=== PATIENT | male | born 1965 | race Caucasian/White ===

== ENCOUNTER 2016-11-27 16:44 | Inpatient (IN) | payer OTHER ==
[~2016-11-27] VITALS: Ht 185.4 cm; Wt 125.5 kg
--- NOTE | 2016-11-27 19:17 | ED NURSING NOTES ---
Clinical Report - Nurses [facility] [address] [place] [address] 11/27/2016 16:45 Patient: CAROLANN RICHARDSON TRIAGE Triage time 17:42 Nov 27 2016. Acuity: LEVEL 3. Chief Complaint: ABDOMINAL PAIN, NAUSEA, VOMITING and DIARRHEA. Alert. --17:51 Dean Smith R.N. 17:41 11/27/16. BP: 170/98. HR: 84 (regular and normal rate). RR: 18. O2 saturation: 96% on room air. Pain level now: 0/10. Additional comments: pain waxes and wanes. --17:51 Dean Smith R.N. 17:41. --19:00 Dean Smith R.N. 17:14 11/27/16. Pain level now: 7/10. --21:31 Dean Smith R.N. 17:41 11/27/16. Temp: 99 F. --21:32 Dean Smith R.N. Weight: 124.2 kg stated. Height/Length: 72 inches Per Patient. BMI: 37.2. --17:48 Dean Smith R.N. Medications Lomotil Oral 2-3 x daily. --17:46 Dean Smith R.N. Medication/allergy information source: the patient. --17:51 Dean Smith R.N. Allergies No Known Drug Allergy. --17:47 Dean Smith R.N. History Arrived by private vehicle. Historian: patient. Unaccompanied. Primary physician (Farhad). ( LUQ Abdominal pain. Pt states that he had a "blockage" once before and just before they were going to CT his abd, the Barium swallow broke everything loose, so they didn't do it.). Onset. (about 2 days ago). He has had nausea, vomiting, diarrhea and abdominal pain. Treatment [employer]: (Lomotil). SOCIAL HX: Smoker- current status unknown. Alcohol use; consumes four beers and liquor. (one or the other). No recent travel. No infectious disease exposure. ABUSE ASSESSMENT: No report of abuse. FALL RISK ASSESSMENT: Fall risk assessment completed. No fall risk identified. NUTRITIONAL RISK ASSESSMENT: The nutritional risk assessment revealed no deficiencies. FUNCTIONAL ASSESSMENT: Functional assessment: no impairments noted. LEARNING NEEDS ASSESSMENT: The learning needs assessment revealed no barriers. --17:51 Dean Smith R.N. SOCIAL HX: Former smoker, end date 1996. --19:00 Dean Smith R.N. PROBLEMS: Bowel Obstruction. --17:48 Dean Smith R.N. ADDITIONAL SURGERIES: Knee Surgery. --17:48 Dean Smith R.N. Interventions ID band on patient. To treatment room. --17:51 Dean Smith R.N. PHYSICAL ASSESSMENT Ambulatory to room. GENERAL / NEURO / PSYCH: Alert. Oriented X 4. HEENT: Mucous membranes are pink. RESPIRATORY: Respirations not labored. CVS: Normal sinus rhythm noted. GI / : Abdominal distention. SKIN: Skin is warm and dry. --17:51 Dean Smith R.N. NURSING PROGRESS NOTES Patient gowned. Reassurance given. Patient identifiers checked. Call light placed in reach. Side rails up x 1. Bed placed in lowest position. Brakes of bed on. Patient ready for evaluation- chart flagged and ED physician notified. --17:52 Dean Smith R.N. 18:24 11/27/2016 Site #1 started via IV in the right hand with an 20g angiocath, with aseptic technique and good blood return; one attempt. Blood drawn: rainbow set. Labeled in the presence of the patient and sent to the lab. Saline lock flushed with 10 mL saline. --18:39 Dean Smith R.N. 18:29 11/27/2016 Started bag #1 1000 mL IV Fluids IV NS (Saline); at 1000 mL/hr over 60 minute(s) via site #1 via IV pump. Allergies verified and confirmed 5 rights. IV patency established. IV site checked: no pain, redness, or swelling. IV flushed thoroughly pre- and post-medication administration. --18:39 Dean Smith R.N. 18:30 11/27/2016 Zofran (Ondansetron HCl) IVP 4 mg given over 2 minute(s) via site #1. Allergies verified and confirmed 5 rights. IV patency established. IV site checked: no pain, redness, or swelling. IV flushed thoroughly pre- and post-medication administration. IVP given by RN. --18:40 Dean Smith R.N. 18:30 11/27/16. Checked patient name, birthdate and medical record number: patient confirmed. Instructions provided to collect clean catch urine and patient verbalized understanding. Clean catch urine collected with return of maurizio-colored clear urine; odor is normal; sample sent to lab for urinalysis, culture and drug screen. Specimen labeled in the presence of the patient. --18:43 Dean Smith R.N. 18:33 11/27/2016 Reglan (Metoclopramide HCl) IVP 10 mg given over 2 minute(s) via site #1. Allergies verified and confirmed 5 rights. IV patency established. IV site checked: no pain, redness, or swelling. IV flushed thoroughly pre- and post-medication administration. IVP given by RN. --18:40 Dean Smith R.N. 18:36 11/27/2016 Dilaudid (HYDROmorphone HCl PF) IVP 0.5 mg given over 2 minute(s) via site #1. Allergies verified, confirmed 5 rights and sedative warning given to the patient. IV patency established. IV site checked: no pain, redness, or swelling. IV flushed thoroughly pre- and post-medication administration. IVP given by RN. --18:41 Dean Smith R.N. 19:30 11/27/2016 IV Fluids IV NS Bag Change: bag #1 infused. Total amount infused: 1000. STARTED bag #2 (1000 mL) at 500 mL/hr via IV pump. Confirmed 5 rights. IV patency established. IV site checked: no pain, redness, or swelling. IV flushed thoroughly. --20:40 Dean Smith R.N. 20:11 11/27/16. 18 fr NG tube inserted with minimal difficulty. Placement confirmed by return of gastric contents. Return: brown, green fluid. Attached to low and intermittent suction. (pt tolerated procedure fair). --20:31 Dean Smith R.N. 20:42 11/27/16. BP: 154/86. HR: 90. RR: 16. O2 saturation: 92% on room air. Pain level now: 12/19. Additional comments: Abdominal pain. --20:43 Dean Smith R.N. DISPOSITION / DISCHARGE 21:05 11/27/16. BP: 156/90. HR: 86. RR: 18. O2 saturation: 92% on room air. Temp: 99.2 F. Pain level now: 12/19. --21:26 Dean Smith R.N. Departure time: 2109. --21:26 Dean Smith R.N. 21:10 11/27/16. Admitted to Acute Care. Transported via stretcher by transport team with IV. Report was given to a nurse via a phone call. Report included patient's care, treatment, medications, reviewed medication reconcilliation, and condition (including any recent changes or anticipated changes). All questions were answered. Report was acknowledged. Patient's personal items; items were placed in belongings bag and transported with the patient. --21:28 Dean Smith R.N. Locked/Released at 11/27/2016 21:32 by Dean Smith R.N.
--- NOTE | 2016-11-27 19:17 | ED ORDER SUMMARY ---
..... Patient: CAROLANN RICHARDSON OrderSheet [facility] VisitID: [id number] [address] [place] [address] 51y, M Registration Date/Time: 11/27/2016 ORDER SHEET Weight: 124.2 kg (stated) Allergies: No Known Drug Allergy GENERAL ORDERS: CT Abd/Pel w Cont (No) (N/A) Urgent (17:47 11/27/2016 PHutchinson DO) (Ack 17:56 [facility]) [facility] w Diff Urgent (17:48 11/27/2016 PHutchinson DO) (Ack 17:56 LTapper) (20:30 JRomanelli R.N.) CMP Urgent (17:48 11/27/2016 PHutchinson DO) (Ack 17:56 LTapper) (20:30 JRomanelli R.N.) UA-Culture if indicated Urgent (17:48 11/27/2016 PHutchinson DO) (Ack 17:56 LTapper) (18:41 JRomanelli R.N.) Amylase Urgent (17:48 11/27/2016 PHutchinson DO) (Ack 17:56 LTapper) (18:41 JRomanelli R.N.) Lipase Urgent (17:48 11/27/2016 PHutchinson DO) (Ack 17:56 LTapper) (18:41 JRomanelli R.N.) PT with INR Urgent (17:48 11/27/2016 PHutchinson DO) (Ack 17:56 LTapper) (18:41 JRomanelli R.N.) Urine Drug Screen Urgent (17:48 11/27/2016 PHutchinson DO) (Ack 17:56 LTapper) (18:41 JRomanelli R.N.) NPO (17:48 11/27/2016 PHutchinson DO) (18:41 JRomanelli R.N.) NG Tube (to light suction, to intermittent suction) (19:30 11/27/2016 PHutchinson DO) (20:29 JRomanelli R.N.) Call (Place call to): (Dr Macdonald) (19:30 11/27/2016 [facility]) (19:46 LTapper) MEDICATION ORDERS: IV FLUIDS: IV NS : initial bolus 1000 mL (1000 mL/hr), then 500 mL/hr for X2 (NOW) (17:47 11/27/2016 [facility]) (18:39 Shi R.N.) Reglan IV 10 mg (NOW) (17:48 11/27/2016 [facility]) (18:40 Shi R.N.) Zofran IV 4 mg (NOW) (17:48 11/27/2016 [facility]) (18:40 Shi R.N.) Dilaudid IV 0.5 mg (HIGH ALERT MEDICATION) (17:58 11/27/2016 [facility]) (18:41 Shi R.N.) ORDER SHEET NOTES: [Electronically signed by Dean Smith R.N. (21:32 11/27/2016)] [Electronically signed by Mihir Betancourt DO (21:36 11/27/2016)] [Electronically locked/signed by Dean Smith R.N. (21:32 11/27/2016)]
--- NOTE | 2016-11-27 19:17 | ED CLINICAL REPORT ---
Clinical Report - Physicians/Mid Levels [facility] [address] [address] 11/27/2016 16:45 Patient: CAROLANN RICHARDSON Time Seen: 17:47. Arrived- By private vehicle. Historian- patient. HISTORY OF PRESENT ILLNESS Chief Complaint: ABDOMINAL PAIN. At its maximum, severity described as severe. When seen in the E.D., severity described as severe. Modifying factors- worsened by movement. Relieved by rest. It is described as sharp. No radiation. It is described as located in the upper abdomen and in the left upper quadrant. This started 2 days ago and is still present. It was gradual in onset and has been waxing/waning. The patient has had nausea and diarrhea. He has had vomiting (states diarrhea for months). Similar symptoms previously: Once. Diagnosis: bowel obstruction. Recent medical care: The patient was seen recently in the office (seen at Dr. Nunez's office today and sent to the ED). REVIEW OF SYSTEMS The patient has had constipation and back pain. No black stools, hematemesis, difficulty with urination, pain with urination or urinary frequency. No bloody stools, fever, headache, sore throat or chest pain. No difficulty breathing or cough. All systems otherwise negative, except as recorded above. PAST HISTORY Bowel obstruction secondary to unknown causes. Primary physician (Farhad). Surgeries: Knee surgery. Medications: Lomotil Oral 2-3 x daily. Allergies: No Known Drug Allergy. SOCIAL HISTORY Former smoker. Occasional alcohol use. No drug use. Is a local resident. ADDITIONAL NOTES The nursing notes have been reviewed. PHYSICAL EXAM Vital Signs: 11/27/2016 17:41 BP: 170/98. HR: 84. RR: 18. O2 saturation: 96%. Pain level now: 0/10. Appearance: Alert. Oriented X3. Patient in moderate distress. Eyes: Eyes normal inspection. No scleral icterus or pale conjunctivae. ENT: Pharynx normal. No pharyngeal erythema or tonsillar exudate. The mucous membranes are not dry. Neck: Normal inspection. Neck supple. CVS: Normal heart rate and rhythm. Heart sounds normal. Pulses normal. Respiratory: No respiratory distress. Breath sounds normal. Abdomen: Soft. Moderate tenderness diffusely. Guarding present. No mass. Distention with tenderness to palpation. Back: Normal inspection. Skin: Skin warm and dry. Normal skin color. No rash. Normal skin turgor. Extremities: Extremities exhibit normal ROM. No lower extremity edema. Neuro: Oriented X 3. No motor deficit. LABS, X-RAYS, AND EKG Laboratory Tests: UA-Culture if indicated: (SYDNI: 11/27/2016 18:25) ( MsgRcvd 11/27/2016 18:55) Final results Test Result Flag Units (Reference) URINE COLOR DARK YELLOW URINE APPEARANCE CLEAR URINE GLUCOSE NEGATIVE (NEGATIVE) URINE BILIRUBIN ICTOTEST NEGATIVE (NEGATIVE) URINE KETONE TRACE (NEGATIVE) URINE SPECIFIC GRAVITY >= 1.030 (1.010-1.030) URINE PH 5.5 (5.0-8.0) URINE PROTEIN TRACE (NEGATIVE) URINE UROBILINOGEN 0.2 EU/dL (0.2-1.0) URINE NITRITE NEGATIVE (NEGATIVE) URINE BLOOD NEGATIVE (NEGATIVE) URINE LEUK ESTERASE NEGATIVE (NEGATIVE) URINE RBC NONE SEEN rbc/hpf (0-1) URINE WBC 0-1 wbc/hpf (0-1) URINE EPITHELIAL CELLS 0-1 EPI/hpf (0-5) URINE BACTERIA NONE SEEN (NONE SEEN) URINE COMMENT CULT NOT INDICATED 1+ MUCUSURINE CULTURES ARE SET-UP BASED ON THE FOLLOWING CRITERIA:POSITIVE NITRITEPOSITIVE LEUKOCYTE ESTERASEGREATER THAN 10 WHITE BLOOD CELLSMODERATE (2+) OR GREATER BACTERIA CBC w Diff: (SYDNI: 11/27/2016 18:15) ( PrgRcvd 11/27/2016 18:37) Final results Test Result Flag Units (Reference) WHITE BLOOD COUNT 10.6 K/uL (4.5-11.5) RED BLOOD COUNT 5.32 M/uL (4.50-5.90) HEMOGLOBIN 16.1 gm/dL (13.5-17.5) HEMATOCRIT 48.7 % (41.0-53.0) MEAN CELL VOLUME 92 fL (80-100) MEAN CORPUSCULAR HGB 30 pg (26-34) MEAN CORPUSCULAR HGB CONC 33 g/dL (31-37) RED CELL DISTRIBUTION WIDTH 13.5 % (11.6-14.8) PLATELET COUNT 241 K/uL (150-400) NEUTROPHIL % 74.9 % (50-75) LYMPH % 13.1 L % (25-40) MONO % 9.4 % (3-14) EOSINOPHIL % 2.0 % (0-4) BASOPHIL % 0.6 % (0-2) PT with INR: (SYDNI: 11/27/2016 18:15) ( [facility] 11/27/2016 18:37) Final results Test Result Flag Units (Reference) INR 1.0 (0.8-1.2) Low Intensity Therapy: INR 1.5-2.0 PT range 18.5-23.1Mod.Intensity Therapy: INR 2.0-3.0 PT range 23.1-31.5High Intensity Therapy: INR 2.5-3.5 PT range 27.4-35.5High Intensity Therapy 2: INR 3.0-4.0 PT range 31.5-39.3 Magnesium: (SYDNI: 11/27/2016 19:15) ( [facility] 11/27/2016 20:16) Final results Test Result Flag Units (Reference) MAGNESIUM 1.9 mg/dL (1.8-2.4) Urine Drug Screen: (SYDNI: 11/27/2016 18:25) ( [facility] 11/27/2016 18:56) Final results Test Result Flag Units (Reference) AMPHETAMINE/METHAMPHETAMINE NEGATIVE (NEGATIVE) BARBITURATE NEGATIVE (NEGATIVE) BENZODIAZEPINE NEGATIVE (NEGATIVE) CANNABINOID NEGATIVE (NEGATIVE) COCAINE NEGATIVE (NEGATIVE) ECSTASY NEGATIVE (NEGATIVE) METHADONE NEGATIVE (NEGATIVE) OPIATE NEGATIVE (NEGATIVE) The urine drug screen is a qualitative screening test fordrug overdose and abuse. All screen results should beconsidered as presumptive.Drugs screened for are as follows:BenzodiazepinesCocaineAmphetamines/MetamphetaminesTHC (Tetrahydrocannabinol)OpiatesBarbituratesEcstasyMethadonePositive results are unconfirmed. For confirmation, notifythe lab for the specimen to be sent to the reference lab.All confirmations must be performed by a differentmethodology.The ingestion of natural herbal and plant productscontaining Ephedra/Ephedra metabolites can produce in urineone or more substances capable of cross reacting withamphetamine/methamphetamine immunoassays. These testsprovide a preliminary result only. A more specificalternative chemical method must be used to obtain aconfirmed analytical result. CMP: (SYDNI: 11/27/2016 18:15) ( MsgRcvd 11/27/2016 18:51) Final results Test Result Flag Units (Reference) GLUCOSE 111 H mg/dL (70-110) BUN 16 mg/dL (7-18) CREATININE 1.0 mg/dL (0.6-1.3) Estimated GFR >60 mL/min Estimated GFR- >60 mL/min Note: Persistent reduction over 3 months in eGFR<60 mL/min/1.73 m2 defines CKD. Patients with eGFR values>=60 mL/min/1.73 m2 may also have CKD if evidence ofpersistent proteinuria. Additional information may be foundat www.kidney.org. SODIUM 142 mmol/L (136-145) POTASSIUM 3.6 mmol/L (3.5-5.1) CHLORIDE 103 mmol/L (98-107) CARBON DIOXIDE 29 mmol/L (21-32) CALCIUM 8.6 mg/dL (8.5-10.1) TOTAL PROTEIN 7.4 g/dL (6.4-8.2) ALBUMIN 3.8 g/dL (3.3-5.0) BILIRUBIN, TOTAL 1.1 H mg/dL (0.0-1.0) ALKALINE PHOSPHATASE 84 U/L (46-116) AST (SGOT) 19 U/L (15-37) ALT (SGPT) 47 U/L (12-78) LIPASE 120 U/L (73-393) AMYLASE 32 U/L (25-115) . Pulse Oximetry: 11/27/2016 17:41 O2 saturation: 96%. (FIO2 - room air). Interpretation: normal. PROGRESS AND PROCEDURES Course of Care: Normal Saline 1 liter IVPB given. Zofran 4 mg IVP given. Reglan 10 mg IVP given. Dilaudid 1 mg IVP given. NGT placed to LIS. Patient is stable. Discussed case with patient's primary care provider, (Enrique). Discussed case with hospitalist, (Rosenda). Reviewed test results. Agreed upon treatment plan and decision to admit. Consult obtained from surgery. [place] call returned 19:40. Patient/family counseled. Transition orders written. Disposition: Admitted to Acute Care. Condition: guarded and improved. CLINICAL IMPRESSION Complete small bowel obstruction. No intestinal bands / adhesions, volvulus, intussusception or hernia. Severe obesity (BMI 35 - 39.9) due to excess calories. (Electronically signed by Mihir Betancourt DO 11/27/2016 21:36)
--- NOTE | 2016-11-27 19:17 | ED ORDER SUMMARY ---
..... Patient: CAROLANN RICHARDSON OrderSheet [facility] VisitID: [id number] [address] [place] [address] 51y, M Registration Date/Time: 11/27/2016 ORDER SHEET Weight: 124.2 kg (stated) Allergies: No Known Drug Allergy GENERAL ORDERS: CT Abd/Pel w Cont (No) (N/A) Urgent (17:47 11/27/2016 PHutchinson DO) (Ack 17:56 [facility]apper) [facility] w Diff Urgent (17:48 11/27/2016 PHutchinson DO) (Ack 17:56 LTapper) (20:30 JRomanelli R.N.) CMP Urgent (17:48 11/27/2016 PHutchinson DO) (Ack 17:56 LTapper) (20:30 JRomanelli R.N.) UA-Culture if indicated Urgent (17:48 11/27/2016 PHutchinson DO) (Ack 17:56 LTapper) (18:41 JRomanelli R.N.) Amylase Urgent (17:48 11/27/2016 PHutchinson DO) (Ack 17:56 LTapper) (18:41 JRomanelli R.N.) Lipase Urgent (17:48 11/27/2016 PHutchinson DO) (Ack 17:56 LTapper) (18:41 JRomanelli R.N.) PT with INR Urgent (17:48 11/27/2016 PHutchinson DO) (Ack 17:56 LTapper) (18:41 JRomanelli R.N.) Urine Drug Screen Urgent (17:48 11/27/2016 PHutchinson DO) (Ack 17:56 LTapper) (18:41 JRomanelli R.N.) NPO (17:48 11/27/2016 PHutchinson DO) (18:41 JRomanelli R.N.) NG Tube (to light suction, to intermittent suction) (19:30 11/27/2016 PHutchinson DO) (20:29 JRomanelli R.N.) Call (Place call to): (Dr Macdonald) (19:30 11/27/2016 [facility]) (19:46 LTapper) MEDICATION ORDERS: IV FLUIDS: IV NS : initial bolus 1000 mL (1000 mL/hr), then 500 mL/hr for X2 (NOW) (17:47 11/27/2016 [facility]) (18:39 Shi R.N.) Reglan IV 10 mg (NOW) (17:48 11/27/2016 [facility]) (18:40 Shi R.N.) Zofran IV 4 mg (NOW) (17:48 11/27/2016 [facility]) (18:40 Shi R.N.) Dilaudid IV 0.5 mg (HIGH ALERT MEDICATION) (17:58 11/27/2016 [facility]) (18:41 Shi R.N.) ORDER SHEET NOTES: [Electronically signed by Dean Smith R.N. (21:32 11/27/2016)] [Electronically signed by Mihir Betancourt DO (21:36 11/27/2016)] [Electronically locked/signed by Dean Smith R.N. (21:32 11/27/2016)]
--- NOTE | 2016-11-27 19:25 | DIAGNOSTIC IMAGING REPORT ---
PROCEDURE: CT ABD/PELVIS WITH CONTRAST CLINICAL INDICATION: Nausea and vomiting x3 days. Initial encounter . TECHNIQUE: 130 ml of Isovue 300 were injected intravenously and axial images were obtained of the entire abdomen and pelvis with sagittal and coronal reformations. COMPARISON: None. FINDINGS: ABDOMEN: Moderately dilated loops of small bowel with air-fluid levels with transition point in the right abdomen and normal caliber of the distal small bowel. There is fluid in the ascending and transverse colon. Mild descending colon diverticulosis. Lung bases are clear. Heart size is normal. Liver, gallbladder, pancreas, spleen and adrenal glands are normal. Horseshoe kidney. Normal abdominal aorta. PELVIS: Normal appendix. Mild sigmoid diverticulosis. Normal prostate. No pelvic mass or free fluid. Mild levoconvex scoliosis with moderate degenerative changes. IMPRESSION: 1. Small bowel obstruction with transition point in the right abdomen 2. Fluid in the ascending and transverse colon which may indicate enterocolitis 3. Mild diverticulosis 4. Results discussed with Dr. Betancourt All CT scans at this facility use dose modulation, iterative reconstruction, and/or weight-based dosing when appropriate to reduce radiation dose to as low as reasonably achievable.
--- NOTE | 2016-11-27 20:23 | History & Physical Report ---
Admission Admit Date 11/27/16 Information Source Information Source: Self Reliability: Good History Chief Complaint Abdominal Pain, Nausea, and Vomiting History of Present Illness Patient is a 51 year old male with a past medical history of Tobacco Use Disorder who presents to the ER after he was seen by his PCP earlier today and was referred to the ER at [facility] for further evaluation. Pt states over the last 2 days he has been experiencing significant nausea and vomiting as well as intermittent abdominal pain. Pt states the pain is located in his epigastrium and over his LUQ. He states the pain is non radiating. He states the pain is rated at 8 out of 10 on pain scale. Pt states the pain is intermittent and comes and goes spontaneously. He is not able to relate what makes the pain better and what makes it worse. Pt states his last meal was approx 36 hours ago. He states his last bowel movement as a very loose stool approx 13 hours ago. Since his last stool he has not passed gas or experienced any belching. Pt states his abdomen is tense, distended and he feels "very bloated". Pt states he has absolutely no appetite at this time. Pt denies any recent fever. He states he has had once episode similar to this 2 years ago which resolved spontaneously. Pt has no other complaints or concerns at this time. Patient History 1. 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 He has a previous hx of tobacco use but no longer smokes. He denies excessive alcohol consumption and any hx of illicit drug use. Family History Family history was reviewed; no changes noted. Medications and Allergies Medications Current Medications Sig/Wm Start time Last Medication Dose Route Stop Time Status Admin Pantoprazole Sodium 40 MG DAILY@0600 11/28 0600 UNV IV Dextrose/Sodium 1,000 ML ASDIRECTED 11/27 2014 UNV Chloride IV Morphine Sulfate 1 MG Q4H PRN 11/27 2014 UNV IV Sodium Chloride 1,000 ML NOW STA 11/27 2006 UNV IV 11/27 2105 Enoxaparin Sodium 40 MG QAM 11/27 2002 UNVr SC Hydromorphone HCl See Dose ONCE PRN 11/27 1999 UNi Insts (1) IV Naloxone HCl 0.4 MG PRN PRN 11/27 1999 UNV IV Ondansetron HCl 4 MG Q4H PRN 11/27 1999 UNV IV Ondansetron HCl 4 MG Q6H PRN 11/27 1999 UNV IV Home Medications: 1. Loperamide PRN Allergies Coded Allergies: NKA (11/27/16) Review of Systems Other All systems reviewed and are negative except for what has already been described in the HPI. Physical Exam Vital Signs / I&Os TEMP: 98.5 degrees BP: 115/68 HR: 80 bpm RR: 18 SpO2: 98% on room air Other GENERAL: NAD; Pt laying comfortably in bed HEENT: AT/NC; PERRLA, EOMI; MM parched CARDIAC: RRR, No M/R/G appreciated PULM: Clear to auscultation bilaterally ABD: Tense, TTP over epigastrium, Distended, No BS appreciated in any quadrant; No hepatosplenomegaly appreciated EXT: No C/C/E in bilateral upper and lower extremity; No calve tenderness bilaterally SKIN: Warm, dry, pink, and intact NEURO: Alert and oriented x3; Following all commands PSYCH: Normal mood and affect LAB Results Laboratory Tests 11/27 11/27 11/27 1915 1825 1815 Chemistry Plasma Sodium (136 - 145 mmol/L) 142 Plasma Potassium (3.5 - 5.1 mmol/L) 3.6 Plasma Chloride (98 - 107 mmol/L) 103 CO2 (Enzymatic) (21 - 32 mmol/L) 29 BUN (7 - 18 mg/dL) 16 Creatinine (0.6 - 1.3 mg/dL) 1.0 Est GFR ( Amer) (mL/min) >60 Est GFR (Non-Af Amer) (mL/min) >60 Glucose (70 - 110 mg/dL) 111 Plasma Calcium (8.5 - 10.1 mg/dL) 8.6 Plasma Magnesium Pending Total Bilirubin (0.0 - 1.0 mg/dL) 1.1 AST (15 - 37 U/L) 19 ALT (12 - 78 U/L) 47 Alkaline Phosphatase (46 - 116 U/L) 84 Total Protein (6.4 - 8.2 g/dL) 7.4 Albumin (3.3 - 5.0 g/dL) 3.8 Amylase (25 - 115 U/L) 32 Lipase (73 - 393 U/L) 120 Coagulation INR (0.8 - 1.2) 1.0 Hematology WBC (4.5 - 11.5 K/uL) 10.6 RBC (4.50 - 5.90 M/uL) 5.32 Hgb (13.5 - 17.5 gm/dL) 16.1 Hct (41.0 - 53.0 %) 48.7 MCV (80 - 100 fL) 92 MCH (26 - 34 pg) 30 RDW (11.6 - 14.8 %) 13.5 Neut % (Auto) (50 - 75 %) 74.9 Lymph % (Auto) (25 - 40 %) 13.1 [place] % (Auto) (3 - 14 %) 9.4 Eos % (Auto) (0 - 4 %) 2.0 Baso % (Auto) (0 - 2 %) 0.6 Plt Count, EDTA (150 - 400 K/uL) 241 PUBS MCHC (31 - 37 g/dL) 33 Toxicology Urine Opiates Screen (NEGATIVE) NEGATIVE Urine Methadone Screen (NEGATIVE) NEGATIVE Ur Barbiturates Screen (NEGATIVE) NEGATIVE U Amphetamin/Meth Scrn (NEGATIVE) NEGATIVE MDMA (Ecstasy) Screen (NEGATIVE) NEGATIVE U Benzodiazepines Scrn (NEGATIVE) NEGATIVE Urine Cocaine Screen (NEGATIVE) NEGATIVE U Cannabinoids Screen (NEGATIVE) NEGATIVE Urines Urine Color DARK YELLOW Urine Appearance CLEAR Urine pH (5.0 - 8.0) 5.5 Ur Specific [place] (1.010 - 1.030) >= 1.030 Urine Protein (NEGATIVE) TRACE Urine Ketones (NEGATIVE) TRACE Urine Blood (NEGATIVE) NEGATIVE Urine Nitrite (NEGATIVE) NEGATIVE Ur Bilirubin Confirm (NEGATIVE) NEGATIVE Urine Urobilinogen (0.2 - 1.0 EU/dL) 0.2 Ur Leukocyte Esterase (NEGATIVE) NEGATIVE Urine RBC (0 - 1 rbc/hpf) NONE SEEN Urine WBC (0 - 1 wbc/hpf) 0-1 Ur Epithelial Cells (0 - 5 EPI/hpf) 0-1 Urine Bacteria (NONE SEEN) NONE SEEN Urine Glucose (NEGATIVE) NEGATIVE Urine Comment CULT NOT INDICATED Imaging CT ABD/PELVIS WITH CONTRAST CLINICAL INDICATION: Nausea and vomiting x3 days. Initial encounter . TECHNIQUE: 130 ml of Isovue 300 were injected intravenously and axial images were obtained of the entire abdomen and pelvis with sagittal and coronal reformations. COMPARISON: None. FINDINGS: ABDOMEN: Moderately dilated loops of small bowel with air-fluid levels with transition point in the right abdomen and normal caliber of the distal small bowel. There is fluid in the ascending and transverse colon. Mild descending colon diverticulosis. Lung bases are clear. Heart size is normal. Liver, gallbladder, pancreas, spleen and adrenal glands are normal. Horseshoe kidney. Normal abdominal aorta. PELVIS: Normal appendix. Mild sigmoid diverticulosis. Normal prostate. No pelvic mass or free fluid. Mild levoconvex scoliosis with moderate degenerative changes. IMPRESSION: 1. Small bowel obstruction with transition point in the right abdomen 2. Fluid in the ascending and transverse colon which may indicate enterocolitis 3. Mild diverticulosis 4. Results discussed with Dr. Betancourt Assessment and Plan Problem List 1. Small bowel obstruction Plan - Admit to Acute Care under inpatient status as expected length of stay is greater than 2 midnights - Strict NPO - Place NG tube now to low intermittent suction - Start IV fluids - Start pt on Morphine 1 mg IV q 4 hours PRN for severe pain - General Surgery has been consulted by the ER (Dr. Houston) - Will order an abdominal series for the AM - Repeat BMP in AM 2. Nausea and vomiting Plan - Secondary to #1 - NG tube to be placed to low intermittent suction - Start IV Zofran 4 mg q 6 hours PRN - IV fluids 3. Dehydration Plan - Secondary to #2 - Pt has been bolused with 1 liter of NS in the ER - Bolus an additional 1 liter of NS now - Start continuous D5 Normal Saline at 100 mL/hour after second liter of Normal Saline is finished bolusing FULL CODE, per discussion with patient at bedside
[2016-11-27 21:36] VITALS: BP 159/80
--- NOTE | 2016-11-27 21:36 | ED MAR SUMMARY ---
..... Medication Administration Record [facility] [address] [place] [address] Patient: CAROLANN RICHARDSON Visit ID: [id number] 51y, M Weight: 124.2 kg Height/Length: 72 in BMI: 37.2 ALLERGIES: No Known Drug Allergy Start 18:29 11/27/2016 Dean Smith R.N. Medication Administered: IV NS (SALINE), Dose: IV Fluids over 60 minute(s), Rate: 1000 mL/hr, Dispensed: 1000 mL bag, Site: #1 right hand. Medication Ordered: IV NS : initial bolus 1000 mL (1000 mL/hr), then 500 mL/hr for X2 (NOW). Given 18:30 11/27/2016 Dean Smtih R.N. Medication Administered: ZOFRAN [IVP] (ONDANSETRON HCL), Dose: 4 mg IVP over 2 minute(s), Site: #1 right hand. Medication Ordered: Zofran IV 4 mg (NOW). Given 18:33 11/27/2016 Dean Smith R.N. Medication Administered: REGLAN [IVP] (METOCLOPRAMIDE HCL), Dose: 10 mg IVP over 2 minute(s), Site: #1 right hand. Medication Ordered: Reglan IV 10 mg (NOW). Given 18:36 11/27/2016 Dean Smith R.N. Medication Administered: DILAUDID [IVP] (HYDROMORPHONE HCL PF), Dose: 0.5 mg IVP over 2 minute(s), Site: #1 right hand. Medication Ordered: Dilaudid IV 0.5 mg (HIGH ALERT MEDICATION).
--- NOTE | 2016-11-27 21:36 | ED MED RECONCILIATION SUMMARY ---
Patient: CAROLANN RICHARDSON Medication Reconciliation Report [facility] VisitID: [id number] [address] [place] [address] 51y, M Registration Date/Time: 11/27/2016 Weight: 124.2 kg Height/Length: 72 in. BMI: 37.2 ALLERGIES: No Known Drug Allergy The patient's Home Medications are listed below: THE FOLLOWING MEDICATIONS NEED TO BE RECONCILED: Lomotil Oral 2-3 x daily The source(s) of the original Home Medication information: patient The following Medications were given to the patient in the Emergency Department: IV NS IV Fluids bolus 0, then 1000 mL/hr, administered: 11/27/2016 6:29:00 PM Zofran [IVP] IVP 4 mg, administered: 11/27/2016 6:30:00 PM Reglan [IVP] IVP 10 mg, administered: 11/27/2016 6:33:00 PM Dilaudid [IVP] IVP 0.5 mg, administered: 11/27/2016 6:36:00 PM The following Medications were prescribed to the patient: None.
--- NOTE | 2016-11-27 21:36 | ED MED RECONCILIATION SUMMARY ---
Patient: CAROLANN RICHARDSON Medication Reconciliation Report [facility] VisitID: [id number] [address] [place] [address] 51y, M Registration Date/Time: 11/27/2016 Weight: 124.2 kg Height/Length: 72 in. BMI: 37.2 ALLERGIES: No Known Drug Allergy The patient's Home Medications are listed below: THE FOLLOWING MEDICATIONS NEED TO BE RECONCILED: Lomotil Oral 2-3 x daily The source(s) of the original Home Medication information: patient The following Medications were given to the patient in the Emergency Department: IV NS IV Fluids bolus 0, then 1000 mL/hr, administered: 11/27/2016 6:29:00 PM Zofran [IVP] IVP 4 mg, administered: 11/27/2016 6:30:00 PM Reglan [IVP] IVP 10 mg, administered: 11/27/2016 6:33:00 PM Dilaudid [IVP] IVP 0.5 mg, administered: 11/27/2016 6:36:00 PM The following Medications were prescribed to the patient: None.
--- NOTE | 2016-11-27 21:36 | ED DISCHARGE INSTRUCTIONS ---
Patient: CAROLANN RICHARDSON General Instructions [facility] VisitID: [id number] [address] [place] [address] 51y, M Registration Date/Time: 11/27/2016 Complete small bowel obstruction. No intestinal bands / adhesions, volvulus, intussusception or hernia. Severe obesity (BMI 35 - 39.9) due to excess calories. (Electronically signed by Mihir Betancourt DO 11/27/2016 21:36)
--- NOTE | 2016-11-27 21:36 | ED MAR SUMMARY ---
..... Medication Administration Record [facility] [address] [place] [address] Patient: CAROLANN RICHARDSON Visit ID: [id number] 51y, M Weight: 124.2 kg Height/Length: 72 in BMI: 37.2 ALLERGIES: No Known Drug Allergy Start 18:29 11/27/2016 Dean Smith R.N. Medication Administered: IV NS (SALINE), Dose: IV Fluids over 60 minute(s), Rate: 1000 mL/hr, Dispensed: 1000 mL bag, Site: #1 right hand. Medication Ordered: IV NS : initial bolus 1000 mL (1000 mL/hr), then 500 mL/hr for X2 (NOW). Given 18:30 11/27/2016 Dean Smith R.N. Medication Administered: ZOFRAN [IVP] (ONDANSETRON HCL), Dose: 4 mg IVP over 2 minute(s), Site: #1 right hand. Medication Ordered: Zofran IV 4 mg (NOW). Given 18:33 11/27/2016 Dean Smith R.N. Medication Administered: REGLAN [IVP] (METOCLOPRAMIDE HCL), Dose: 10 mg IVP over 2 minute(s), Site: #1 right hand. Medication Ordered: Reglan IV 10 mg (NOW). Given 18:36 11/27/2016 Dean Smith R.N. Medication Administered: DILAUDID [IVP] (HYDROMORPHONE HCL PF), Dose: 0.5 mg IVP over 2 minute(s), Site: #1 right hand. Medication Ordered: Dilaudid IV 0.5 mg (HIGH ALERT MEDICATION).
--- NOTE | 2016-11-27 21:36 | ED DISCHARGE INSTRUCTIONS ---
Patient: CAROLANN RICHARDSON General Instructions [facility] VisitID: [id number] [address] [place] [address] 51y, M Registration Date/Time: 11/27/2016 Complete small bowel obstruction. No intestinal bands / adhesions, volvulus, intussusception or hernia. Severe obesity (BMI 35 - 39.9) due to excess calories. (Electronically signed by Mihir Betancourt DO 11/27/2016 21:36)
[2016-11-27 22:37] VITALS: BP 141/75
[2016-11-27] MEDS ORDERED: LOMOTIL2.5 MG PO (23:42)
[2016-11-28] VITALS (7 sets, daily range): BP systolic 154–180; BP diastolic 85–108
--- NOTE | 2016-11-28 07:16 | HISTORY AND PHYSICAL ---
ADMITTED: 11/27/2016 CHIEF COMPLAINT: Abdominal pain/distention. HISTORY OF PRESENT ILLNESS: A 51-year-old male admitted to [facility] where he presented to the emergency room with severe crampy, colicky abdominal pain, bloating, nausea, vomiting, and vomited 5-6 times in a 20-minute period. He describes the emesis as being yellowish bile. The patient stated that his last bowel movement was the day of admission, the patient states that he is passing flatus. The patient states that this problem started back in 2009, when he had diarrhea, crampy abdominal pain eventually leading to obstruction. He was admitted to [facility] where he had a CAT scan of his abdomen and eventually a small bowel follow through with resolution of the obstruction. These symptoms are very similar to those symptoms that he had in 2009. In 2009, he had an extensive workup to include colonoscopy, EGD, and PillCam, again all his treatment and care has been in [place]. The patient denies any abdominal surgeries. MEDICAL/SURGICAL HISTORY: The patient is followed by Dr. Nunez who last saw him yesterday. All his care and procedures have been at [facility]. The patient has had right and left knee arthroscopy once at the [facility] and one in [facility]. MEDICATIONS: 1. Lomotil for a tentative diagnosis of irritable bowel syndrome. ALLERGIES: 1. None. SOCIAL HISTORY: The patient lives in [place]. 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 Does not smoke, drinks alcohol socially. Drinks 1 cup of coffee a day. Occasionally uses drugs. Used cocaine twice last year. No service. FAMILY HISTORY: Mother is age 86, has a history of macular degeneration. Father at age 71, colon cancer. One brother, 5 sisters. They are in good health. REVIEW OF SYSTEMS: He denies any history of hepatitis, jaundice, rheumatic fever , blood transfusion, heart murmurs requiring antibiotics or bleeding tendencies. Remaining 12-point review of systems is negative. PHYSICAL EXAMINATION: GENERAL: The patient is awake, alert, conversant, has a nasogastric tube in place, it is draining greenish bile. The patient is very pleasant. VITAL SIGNS: Blood pressure is 154/85, pulse 72, respirations 18, temperature is 98.3. HEENT: Atraumatic, normocephalic. Pupils equal and reactive. No scleral icterus. External auditory canals clear. No nasal septal defect or discharge. The patient has a nasogastric tube in place. Throat clear. Moist mucous membranes. NECK: Supple. No JVD, carotid bruits, or adenopathy. LUNGS: Clear. No rales, rhonchi, or wheezing. O2 saturation on room air 92%. HEART: Regular rhythm, no murmurs. ABDOMEN: Quite distended and tympanitic with normoactive bowel sounds. No abdominal scars or hernias. No [place] sign. Soft to palpation. EXTREMITIES: Full range of motion, active and passively, 4+ popliteal pulses. No pretibial or ankle edema. NEUROLOGIC: The patient is grossly intact with no focal motor neurological deficits. LYMPHATICS: No cervical, supraclavicular, axillary, or groin adenopathy. SKIN: Warm and dry. No evidence of peripheral cyanosis. LAB/IMAGING: Urinalysis on admission, specific gravity greater than 1.030. White count 10.9, hemoglobin and hematocrit 16.1 and 48.7 respectively. Electrolytes: Sodium 142, potassium 3.6, chloride 103, carbon dioxide 29, glucose 111, BUN 6, creatinine 1.0, total bilirubin 1.1, slightly elevated, alkaline phosphatase 84, lipase 120. A CAT scan impression, small-bowel obstruction with transition point in the right abdomen. Fluid in the ascending, transverse colon, which may indicate enterocolitis. Upright abdominal x-ray this morning is pending. IMPRESSION: 1. Partial versus complete bowel obstruction. PLAN: I have discussed the findings with the patient, our recommendation is continue treating conservatively. If his temperature goes up, if his white count was up, if he continues to have abdominal pain or pain that worsens, he will be taken to the operating room for a minimum of diagnostic laparoscopy; however, we would rather treat him conservatively and perhaps in the very near future perform a Gastrografin small bowel follow via his G-tube, both therapeutic and diagnostic. The patient understands and all questions have been answered to his satisfaction at this point.
--- NOTE | 2016-11-28 07:58 | Progress Note ---
Subjective General Brief Hx: 1. Small bowel obstruction with transition point in the right abdomen 2. Fluid in the ascending and transverse colon which may indicate enterocolitis 3. Mild diverticulosis Physical Exam Vital Signs / I&Os Vital Signs Date Time Temp Pulse Resp B/P Pulse O2 O2 Flow FiO2 Ox Delivery Rate 11/28 0708 97.5 72 20 158/91 94 Room Air 11/28 0303 98.2 72 18 154/85 92 Room Air 1.0 11/27 2330 92 11/27 2258 Room Air 11/27 2136 98.4 84 18 159/80 91 Room Air I&O 11/28 0000 11/27 1600 11/27 0800 Intake Total 0 Output Total 700 Balance -700 General Appearance Alert, Cooperative HEENT Normal exam Lungs Clear to auscultation, Normal air movement Cardiovascular Regular rate and rhythm, No murmurs, gallops, rubs Abdomen Soft, No tenderness Extremities No edema LAB Results Laboratory Tests 11/28 11/27 11/27 11/27 0535 1915 1825 1815 Chemistry Plasma Sodium (136 - 145 mmol/L) 143 142 Plasma Potassium (3.5 - 5.1 mmol/L) 3.8 3.6 Plasma Chloride (98 - 107 mmol/L) 107 103 CO2 (Enzymatic) (21 - 32 mmol/L) 27 29 BUN (7 - 18 mg/dL) 12 16 Creatinine (0.6 - 1.3 mg/dL) 0.9 1.0 Est GFR ( Amer) (mL/min) >60 >60 Est GFR (Non-Af Amer) (mL/min) >60 >60 Glucose (70 - 110 mg/dL) 113 111 Plasma Calcium (8.5 - 10.1 mg/dL) 8.0 8.6 Plasma Magnesium (1.8 - 2.4 mg/dL) 1.9 Total Bilirubin (0.0 - 1.0 mg/dL) 1.1 AST (15 - 37 U/L) 19 ALT (12 - 78 U/L) 47 Alkaline Phosphatase (46 - 116 U/L) 84 Total Protein (6.4 - 8.2 g/dL) 7.4 Albumin (3.3 - 5.0 g/dL) 3.8 Amylase (25 - 115 U/L) 32 Lipase (73 - 393 U/L) 120 Coagulation INR (0.8 - 1.2) 1.0 Hematology WBC (4.5 - 11.5 K/uL) 8.8 10.6 RBC (4.50 - 5.90 M/uL) 4.90 5.32 Hgb (13.5 - 17.5 gm/dL) 14.9 16.1 Hct (41.0 - 53.0 %) 45.6 48.7 MCV (80 - 100 fL) 93 92 MCH (26 - 34 pg) 30 30 RDW (11.6 - 14.8 %) 13.8 13.5 Neut % (Auto) (50 - 75 %) 70.7 74.9 Lymph % (Auto) (25 - 40 %) 17.7 13.1 [place] % (Auto) (3 - 14 %) 9.4 9.4 Eos % (Auto) (0 - 4 %) 1.9 2.0 Baso % (Auto) (0 - 2 %) 0.3 0.6 Plt Count, EDTA (150 - 400 K/uL) 205 241 PUBS MCHC (31 - 37 g/dL) 33 33 Toxicology Urine Opiates Screen (NEGATIVE) NEGATIVE Urine Methadone Screen (NEGATIVE) NEGATIVE Ur Barbiturates Screen (NEGATIVE) NEGATIVE U Amphetamin/Meth Scrn (NEGATIVE) NEGATIVE MDMA (Ecstasy) Screen (NEGATIVE) NEGATIVE U Benzodiazepines Scrn (NEGATIVE) NEGATIVE Urine Cocaine Screen (NEGATIVE) NEGATIVE U Cannabinoids Screen (NEGATIVE) NEGATIVE Urines Urine Color DARK YELLOW Urine Appearance CLEAR Urine pH (5.0 - 8.0) 5.5 Ur Specific [place] (1.010 - 1.030) >= 1.030 Urine Protein (NEGATIVE) TRACE Urine Ketones (NEGATIVE) TRACE Urine Blood (NEGATIVE) NEGATIVE Urine Nitrite (NEGATIVE) NEGATIVE Ur Bilirubin Confirm (NEGATIVE) NEGATIVE Urine Urobilinogen (0.2 - 1.0 EU/dL) 0.2 Ur Leukocyte Esterase (NEGATIVE) NEGATIVE Urine RBC (0 - 1 rbc/hpf) NONE SEEN Urine WBC (0 - 1 wbc/hpf) 0-1 Ur Epithelial Cells (0 - 5 EPI/hpf) 0-1 Urine Bacteria (NONE SEEN) NONE SEEN Urine Glucose (NEGATIVE) NEGATIVE Urine Comment CULT NOT INDICATED Assessment and Plan Problem List 1. Small bowel obstruction Plan Patient is with recurrent SBO no know hx of why this came on. Surgery consult obtained at this time. 2. Nausea and vomiting Plan Is feeling better with n/v this am. Passing a little gas. 3. Dehydration Plan Has been feeling better.
--- NOTE | 2016-11-28 08:33 | DIAGNOSTIC IMAGING REPORT ---
PROCEDURE: XR ABD SERIES 2V ABD/1V CHEST INDICATION: Small Bowel Obstruction TECHNIQUE: AP supine and upright views of the abdomen with single view of the chest. COMPARISON: None. FINDINGS: CHEST: Lungs are clear. Left pericardial fat pad. NG tube with the tip in the stomach. Normal cardiovascular structures. Bony thorax is unremarkable. ABDOMEN: Without significant change. There is increasing air throughout the colon with air-fluid levels present in the ascending colon. There is no free air. No mass or suspicious calcification. Mild dextroscoliosis and degenerative changes of the lumbar spine. IMPRESSION: 1. Dilated loops of small bowel with increasing air in the large bowel down to the rectum. Findings suggest a resolving small bowel obstruction versus ileus 2. Results discussed with Dr. Quarles and Dr. Macdonald
--- NOTE | 2016-11-28 21:56 | DIAGNOSTIC IMAGING REPORT ---
PROCEDURE: XR CHEST 1 VIEW INDICATION: Replacement of NG tube. TECHNIQUE: Portable AP view (2130 hours). COMPARISON: Compared to abdominal radiograph earlier today (11/28/2016). FINDINGS: NG tube has been placed which ends in the upper stomach (may be advanced 5-10 cm). Allowing for suboptimal inspiration, lungs are clear. Heart and mediastinum are normal. Thorax is normal. IMPRESSION: 1. Placement of NG tube in upper stomach (may be advance 5-10 cm). 2. Otherwise negative chest. 3. Findings called to the floor.
[2016-11-29 02:36] VITALS: BP 168/79
[2016-11-29 06:42] VITALS: BP 158/91
--- NOTE | 2016-11-29 08:08 | DIAGNOSTIC IMAGING REPORT ---
PROCEDURE: XR ABDOMEN 1 VIEW INDICATION: SBO, follow-up TECHNIQUE: AP upright view. COMPARISON: Abdomen 11/28/2016 FINDINGS: Resolved small bowel distention and air-fluid levels. There are multiple small air fluid levels throughout the large bowel. No masses or unusual calcifications. Osseous structures are unremarkable. IMPRESSION: 1. Resolved small bowel distention. 2. Multiple small air fluid levels throughout the large bowel suggestive of enterocolitis.
[2016-11-29 10:41] VITALS: BP 182/95
--- NOTE | 2016-11-29 10:44 | Progress Note ---
Subjective General 51 year old man who presented with a 2 day history of abdominal pain, vomiting, bloating who has been managed with NG decompression and IV fluids. He had a similar episode 2 years previousely that resolved with a GG UGI. He also reports a history over the last year of diarrhea-watery. He thinks that tests were negative but is no sure what was done. No stools have been sent on this hospitalization. He feels better since being here. He denies blood in the stool or vomit. Physical Exam Vital Signs / I&Os Vital Signs Date Time Temp Pulse Resp B/P Pulse O2 O2 Flow FiO2 Ox Delivery Rate 11/29 0642 98.4 73 16 158/91 95 Room Air 0.0 11/29 0300 Room Air 11/29 0236 98.2 72 17 168/79 95 Room Air 11/28 2225 98.4 81 16 172/86 94 Room Air 11/28 1829 98.2 82 18 171/98 95 Room Air 11/28 1439 173/107 11/28 1438 98.1 80 18 180/108 93 Room Air 11/28 1141 98.1 79 20 167/99 94 Room Air I&O 11/28 0800 11/28 1600 11/29 0000 Intake Total 956 Output Total 850 1000 300 Balance -850 -44 -300 General Appearance Alert, Oriented X3, Cooperative, No acute distress HEENT Normal exam, Atraumatic Lungs Normal air movement Abdomen No tenderness, No guarding, No rebound, No masses, increased tympany and bloating in the upper abdomen. Bowel sounds have rushes. Extremities Normal exam Skin No Rashes Assessment and Plan Problem List 1. Small bowel obstruction 2. Diarrhea Plan check stools for pathogens This could be a slow presentation of Crohns and I favor decompression and SBFT when NG output is low and bloating decreases.
--- NOTE | 2016-11-29 12:36 | Progress Note ---
Subjective General Note Date: November 29, 2016 Admission Date: November 27, 2016 Hospital Day: 3 PCP: Giovanni Nunez M.D. Status: Inpatient Advanced Directive: FULL CODE Room: 209-A Brief History: The patient is a 51-year-old white male with a significant past make a history of small bowel obstruction who presented to [facility] emergency department on the day of admission secondary to complaints of abdominal discomfort nausea and vomiting. [facility] ER evaluation was consistent with small bowel obstruction. Secondary to the above, the patient was admitted by Sonu Duenas M.D. for further evaluation and treatment. For other history present illness, past medical history, family history, social history, review of systems, and admission physical examination please see the patient's history and physical examination and ER visit note in the patient's medical record. Subjective: The patient states he is doing much better today. Status post NG tube placement the patient has experienced no further nausea or vomiting. Patient requests: None Medications and Allergies Medications Current Medications Sig/Wm Start time Last Medication Dose Route Stop Time Status Admin Ketorolac 30 MG TID 11/28 2200 AC 11/29 Tromethamine IV 0455 Potassium Chloride 20 MEQ Q5H 11/28 0645 11/29 Lactated Ringer's 1,000 ML IV 0339 Pantoprazole Sodium 40 MG DAILY@0600 11/28 0600 AC 11/29 IV 0455 Benzocaine/Butamben/ See Dose Q1H PRN 11/27 2300 AC 11/28 Tetracaine HCl Insts (1) TOP 0748 Morphine Sulfate 1 MG Q4H PRN 11/27 2014 AC 11/28 IV 1333 Enoxaparin Sodium 40 MG QAM 11/27 2002 AC 11/28 SC 0915 Naloxone HCl 0.4 MG PRN PRN 11/27 1999 IV Ondansetron HCl 4 MG Q6H PRN 11/27 1999 AC IV Dose Instructions: (1)Benzocaine/Butamben/Tetracaine HCl: 1 SPRAY Allergies Coded Allergies: NKA (11/27/16) Physical Exam Vital Signs / I&Os Vital Signs Date Time Temp Pulse Resp B/P Pulse O2 O2 Flow FiO2 Ox Delivery Rate 11/29 1041 98.4 79 16 182/95 95 Room Air 11/29 0642 98.4 73 16 158/91 95 Room Air 0.0 11/29 0300 Room Air 11/29 0236 98.2 72 17 168/79 95 Room Air 11/28 2225 98.4 81 16 172/86 94 Room Air 11/28 1829 98.2 82 18 171/98 95 Room Air 11/28 1439 173/107 11/28 1438 98.1 80 18 180/108 93 Room Air I&O 11/29 0000 11/28 1600 11/28 0800 Intake Total 956 Output Total 300 1000 850 Balance -300 -44 -850 General Appearance Alert, Oriented X3, Cooperative, No acute distress Lungs Clear to auscultation Cardiovascular Regular rate and rhythm, Normal S1 and S2 Abdomen No tenderness, Distended, tympanitic Extremities No cyanosis, No clubbing, No edema Neurological Cranial nerves intact, No lateralizing signs Psych/Mental Status Mental status normal, Mood normal LAB Results Laboratory Tests 11/29 0530 Chemistry Plasma Sodium (136 - 145 mmol/L) 144 Plasma Potassium (3.5 - 5.1 mmol/L) 4.0 Plasma Chloride (98 - 107 mmol/L) 109 CO2 (Enzymatic) (21 - 32 mmol/L) 25 BUN (7 - 18 mg/dL) 12 Creatinine (0.6 - 1.3 mg/dL) 0.8 Est GFR ( Amer) (mL/min) >60 Est GFR (Non-Af Amer) (mL/min) >60 Glucose (70 - 110 mg/dL) 98 Plasma Calcium (8.5 - 10.1 mg/dL) 8.2 Hematology WBC (4.5 - 11.5 K/uL) 9.0 RBC (4.50 - 5.90 M/uL) 4.57 Hgb (13.5 - 17.5 gm/dL) 13.8 Hct (41.0 - 53.0 %) 42.0 MCV (80 - 100 fL) 92 MCH (26 - 34 pg) 30 RDW (11.6 - 14.8 %) 13.1 Neut % (Auto) (50 - 75 %) 75.9 Lymph % (Auto) (25 - 40 %) 13.0 [place] % (Auto) (3 - 14 %) 9.3 Eos % (Auto) (0 - 4 %) 1.3 Baso % (Auto) (0 - 2 %) 0.5 Plt Count, EDTA (150 - 400 K/uL) 196 PUBS MCHC (31 - 37 g/dL) 33 Microbiology Date/Time Procedure - Status Source Growth 11/29 UNK Escherichia coli Shiga Toxins EIA - ORD STOOL 11/29 UNK Campylobacter Culture - ORD STOOL 11/29 UNK Salmonella/Shigella Culture - ORD STOOL 11/29 UNK Ova and Parasites - ORD STOOL 11/29 UNK Giardia Antigen Screen - ORD STOOL Imaging Abdominal X-Ray IMPRESSION: 1. Resolved small bowel distention. 2. Multiple small air fluid levels throughout the large bowel suggestive of enterocolitis. Dictated by: ALVIN WILSON MD D: BONNY;11/29/16 0808 Assessment and Plan Problem List 1. Diarrhea Plan -Patient with history of diarrhea -Check stool for C. difficile, fecal leukocytes, C&S, O&P -Monitor 2. Small bowel obstruction Plan -Status improved -NG tube with minimal drainage -Plan Gastrografin upper GI in a.m. -Continue present therapy, see surgical note Current status: Fair, improved Anticipated discharge date: Anticipated discharge in 1-2 days Anticipated discharge placement: Home Patient care time: Time spent in chart review, patient interview, physical exam, CPOE, and care documentation: 25 minutes Visit to patient today: 1 Complexity of care: Moderate E&M Codes Rounding: Inpt-Moderate/[id number]
[2016-11-29 14:35] VITALS: BP 167/96
[2016-11-29 18:27] VITALS: BP 163/99
[2016-11-29 22:51] VITALS: BP 178/97
[2016-11-30 05:02] VITALS: BP 172/88
[2016-11-30 07:00] VITALS: BP 183/97
--- NOTE | 2016-11-30 07:39 | Progress Note ---
Subjective General Note Date: November 30, 2016 Admission Date: November 27, 2016 Hospital Day: 4 PCP: Giovanni Nunez M.D. Status: Inpatient Advanced Directive: FULL CODE Room: 209-A Brief History: The patient is a 51-year-old white male with a significant past make a history of small bowel obstruction who presented to [facility] emergency department on the day of admission secondary to complaints of abdominal discomfort nausea and vomiting. [facility] ER evaluation was consistent with small bowel obstruction. Secondary to the above, the patient was admitted by Sonu Duenas M.D. for further evaluation and treatment. For other history present illness, past medical history, family history, social history, review of systems, and admission physical examination please see the patient's history and physical examination and ER visit note in the patient's medical record. Subjective: The patient states he is doing much better today. Status post NG tube placement the patient has experienced no further nausea or vomiting. Patient awaiting Gastrografin upper GI. States ready for discharge Patient requests: None Medications and Allergies Medications Current Medications Sig/Wm Start time Last Medication Dose Route Stop Time Status Admin Ketorolac 30 MG TID 11/28 2200 AC 11/30 Tromethamine IV 0546 Potassium Chloride 20 MEQ Q5H 11/28 0645 AC 11/30 Lactated Ringer's 1,000 ML IV 0216 Pantoprazole Sodium 40 MG DAILY@0600 11/28 0600 AC 11/30 IV 0545 Benzocaine/Butamben/ See Dose Q1H PRN 11/27 2300 AC 11/28 Tetracaine HCl Insts (1) TOP 0748 Morphine Sulfate 1 MG Q4H PRN 11/27 2014 AC 11/28 IV 1333 Enoxaparin Sodium 40 MG QAM 11/27 2002 AC 11/28 SC 0915 Naloxone HCl 0.4 MG PRN PRN 11/27 1999 AC IV Ondansetron HCl 4 MG Q6H PRN 11/27 1999 AC IV Dose Instructions: (1)Benzocaine/Butamben/Tetracaine HCl: 1 SPRAY Allergies Coded Allergies: NKA (11/27/16) Physical Exam Vital Signs / I&Os Vital Signs Date Time Temp Pulse Resp B/P Pulse O2 O2 Flow FiO2 Ox Delivery Rate 11/30 0700 98.4 76 16 183/97 93 Room Air 0.0 11/30 0502 98.1 73 14 172/88 96 Room Air 11/29 2251 98.1 76 16 178/97 96 Room Air 11/29 2044 Room Air 0.0 11/29 1827 98.2 81 18 163/99 95 Room Air 11/29 1435 98.2 82 16 167/96 94 Room Air 11/29 1041 98.4 79 16 182/95 95 Room Air I&O 11/30 0000 11/29 1600 11/29 0800 Intake Total 756 1556 3351 Output Total 1200 40 260 Balance -444 1516 3091 General Appearance Alert, Oriented X3, Cooperative, No acute distress HEENT NG tube remains in place Lungs Clear to auscultation Cardiovascular Regular rate and rhythm, Normal S1 and S2 Abdomen Normal bowel sounds, No tenderness, mild distention. Extremities No cyanosis, No clubbing, No edema Neurological Grossly normal. Psych/Mental Status Mental status normal, Mood normal LAB Results Laboratory Tests 11/30 06 Chemistry Plasma Sodium (136 - 145 mmol/L) 139 Plasma Potassium (3.5 - 5.1 mmol/L) 4.0 Plasma Chloride (98 - 107 mmol/L) 105 CO2 (Enzymatic) (21 - 32 mmol/L) 24 BUN (7 - 18 mg/dL) 8 Creatinine (0.6 - 1.3 mg/dL) 0.7 Est GFR ( Amer) (mL/min) >60 Est GFR (Non-Af Amer) (mL/min) >60 Glucose (70 - 110 mg/dL) 88 Plasma Calcium (8.5 - 10.1 mg/dL) 8.2 Microbiology Date/Time Procedure - Status Source Growth 11/30 0600 Stool Leukocytes - ORD STOOL Assessment and Plan Problem List 1. Small bowel obstruction Plan -Patient with p.m./passing gas -Persistent mild abdominal distention -Gastrografin small bowel follow-through today. -Follow per general surgery -Continue IV fluid therapy 2. Nausea and vomiting Plan -Resolved -Await Gastrografin small bowel follow-through 3. Dehydration Plan -Resolved -BUN and creatinine-8/0.7 today 4. Hypertension Status Acute Onset Date Unknown Plan -Patient with elevated blood pressure -BP 188/99 mmHg -Monitor with possible antihypertensive therapy for persistent blood pressure elevation -Low-salt diet when taken orally 5. Diarrhea Plan -No significant diarrhea -Stool studies ordered-pending Current status: Fair, improved Anticipated discharge date: Anticipated discharge this p.m. if Gastrografin small bowel follow-through unremarkable Anticipated discharge placement: Home Patient care time: Time spent in chart review, patient interview, physical exam, CPOE, and care documentation: 25 minutes Visit to patient today: 1 Complexity of care: Moderate E&M Codes Discharge: Inpt >30 min spent/[id number]
[2016-11-30 11:18] VITALS: BP 188/99
[2016-11-30 14:32] VITALS: BP 182/102
--- NOTE | 2016-11-30 15:25 | DIAGNOSTIC IMAGING REPORT ---
PROCEDURE: XR SMALL BOWEL FOLLOW THROUGH INDICATION: Follow-up small bowel obstruction. TECHNIQUE: Single contrast study. Fluoroscopy was not utilized. 240 ml gastrographin contrast material was infused through the patient's existing nasogastric tube and five images acquired over 2.5 hour time interval. COMPARISON: Comparison is made to abdominal radiographs on 11/30/2016, 11/28/2016, and CT abdomen pelvis (11/27/2016). FINDINGS: Abdominal radiograph demonstrates mildly to moderately dilated proximal small bowel loops. NG tube in distal stomach. Following contrast, there are mildly to moderately proximal small bowel loops. However, there is no evidence of obstruction with contrast reaching the distal colon at 2.5 hours. IMPRESSION: 1. There are persistent mildly to moderately dilated proximal small bowel loops, but no obstruction as contrast reaches the distal colon 2.5 hours. Findings are compatible with residual ileus or resolving partial obstruction. 2. Findings discussed with Dr. Juarez and Dr. Mihir Ramos.
[2016-11-30 18:11] VITALS: BP 169/93
--- NOTE | 2016-11-30 18:37 | Provider's Discharge Care Plan ---
Problem, Goal, Plan Problem List 1. Hypertension Goals: Improve disease control, Prevent disease progress Instructions: Follow up as directed, Avoid processed foods, low salt diet. Have your blood pressure checked this week by your family physician. 2. Small bowel obstruction Goals: Improve disease control, Improve function, Prevent disease progress Instructions: Follow up as directed
--- NOTE | 2016-11-30 18:39 | Discharge Summary ---
Discharge Summary Report Admit Date 11/27/16 Discharge Date 11/30/16 Admission Diagnosis 1. Small bowel obstruction Discharge Diagnosis 1. Small bowel obstruction 2. Hypertension 3. History of diarrhea Brief History The patient is a 51-year-old white male with a significant past make a history of small bowel obstruction who presented to [facility] emergency department on the day of admission secondary to complaints of abdominal discomfort nausea and vomiting. [facility] ER evaluation was consistent with small bowel obstruction. Secondary to the above, the patient was admitted by Sonu Duenas M.D. for further evaluation and treatment. For other history present illness, past medical history, family history, social history, review of systems, and admission physical examination please see the patient's history and physical examination and ER visit note in the patient's medical record. Hospital Course The following problems and her management were noted during the patient's hospitalization: 1. Small bowel obstruction The patient was admitted with findings of small bowel obstruction. He underwent conservative treatment with NG drainage, IV fluid therapy, antiemetics. His symptoms gradually resolved. He underwent small bowel follow-through which showed no signs of small bowel obstruction prior to discharge. He was taking clear liquids well without problems at the time of discharge. It was recommended the patient be followed an additional 24 hours to ensure no ongoing problems with oral intake. He refused ongoing hospitalization requesting discharge to home. He is aware of the possibility of recurrence of his small bowel obstruction. He will follow up with his PCP this week. 2. Hypertension The patient was noted to have findings of hypertension during his hospital stay. His blood pressure at discharge was noted to be 169/93 mmHg. He will follow up with his PCP this week for repeat blood pressure check with consideration of antihypertensive therapy. Low-salt diet on discharge. 3. History of diarrhea The patient has a history of diarrhea. This was not significant. Stool samples were ordered but not collected due to the patient's early departure. He will follow-up with his PCP for ongoing evaluation and treatment of this problem. No history of melena, hematochezia, fever or chills. Lab/Imaging Laboratory Tests 11/30 06 Chemistry Plasma Sodium (136 - 145 mmol/L) 139 Plasma Potassium (3.5 - 5.1 mmol/L) 4.0 Plasma Chloride (98 - 107 mmol/L) 105 CO2 (Enzymatic) (21 - 32 mmol/L) 24 BUN (7 - 18 mg/dL) 8 Creatinine (0.6 - 1.3 mg/dL) 0.7 Est GFR ( Amer) (mL/min) >60 Est GFR (Non-Af Amer) (mL/min) >60 Glucose (70 - 110 mg/dL) 88 Plasma Calcium (8.5 - 10.1 mg/dL) 8.2 Microbiology Date/Time Procedure - Status Source Growth 11/30 0600 Stool Leukocytes - ORD STOOL Discharge Instructions/Meds For other recommendations regarding discharge diet, activity, follow-up, and discharge medications please see the patient's discharge instructions. Discharge condition: Fair, improved-stable Greater than 30 minutes was spent in the patient's discharge preparation The patient was interviewed and examined on the day of discharge. E&M Codes Discharge: Inpt >30 min spent/[id number]
== END 2016-11-30 18:50 | disposition home or self-care (01) | DRG 390 ==
LOC: ED SRH 16:44 → TRANS SRH 19:51 → ACUTE2 SRH 21:16
PROVIDERS: ADMIT Emergency Medicine
PROC: 0D9670Z Drainage of Stomach with Drainage Device, Via Natural or Artificial Opening (ICD-10-PCS; principal; 2016-11-27)
DX: K56.60 Unspecified intestinal obstruction (principal); E86.0 Dehydration; I10 Essential (primary) hypertension
CPT/HCPCS: 87094; 90004; 90047; 90074; 90100; 92235; 92530; 92720; 92760; 92761; 92762; 92763; 92764; 92765; 92766; 92767; 94060; 95059

== ENCOUNTER 2016-12-04 11:54 | Day surgery (SDC) | payer OTHER ==
[~2016-12-04 11:54] MED LIST: LOMOTIL2.5 MG PO
[2016-12-04] MEDS ORDERED: HYCET1 ML PO (14:29)
--- NOTE | 2016-12-04 14:30 | Provider's Discharge Care Plan ---
Problem, Goal, Plan Problem List 1. S/P DX LAPROSCOPY/APPENDECTOMY Goals: Diagnostic testing, Therapeutic intervention Instructions: Follow up as directed, Take meds as directed
--- NOTE | 2016-12-04 14:30 | Provider's Discharge Care Plan ---
Problem, Goal, Plan Problem List 1. S/P DX LAPROSCOPY/APPENDECTOMY Goals: Diagnostic testing, Therapeutic intervention Instructions: Follow up as directed, Take meds as directed
--- NOTE | 2016-12-04 16:02 | OPERATIVE REPORT ---
DATE OF SURGERY: 12/04/2016 SURGEON: Suzie Macdonald III, MD LIME HIDE INSPECTOR: None. PREOPERATIVE DIAGNOSIS: 1. Intermittent chronic small-bowel obstruction POSTOPERATIVE DIAGNOSIS: 1. Intermittent chronic small-bowel obstruction PROCEDURE PERFORMED: 1. Diagnostic laparoscopy 2. Lysis of interloop terminal ileum adhesions 3. Incidental appendectomy ANESTHESIA: General endotracheal anesthesia. INDICATIONS: The patient is a 51-year-old male admitted to [facility] 11/27/2016 with small-bowel obstruction, resolved with conservative management. The patient had been hospitalized a couple years ago with similar episode at [facility]. The patient had extensive workup to include multiple CAT scans with no evidence of masses, colonoscopies, upper GI endoscopy and a PillCam all of which were negative as a source of his bowel obstruction. After a lengthy discussion with the patient, he would like some type of a definitive answer and he was scheduled for diagnostic laparoscopy. SURGICAL FINDINGS: The patient's cecum appeared grossly normal, as did the appendix. The appendix was adherent to the mesoappendix and the terminal ileum secondary to fibrotic bands. The terminal ileum was tethered down to the posterior retroperitoneum on its mesenteric stalk and in the process caused not only the tethering but also a couple of inner loop adhesions. There was no gross evidence of obstruction, but it was a potential site of bowel obstruction. The remaining small bowel showed no evidence of Crohn 's disease or Meckel's diverticulum. SURGICAL TECHNIQUE: The patient was brought to the operating room and placed in the dorsal supine position, where he underwent general endotracheal anesthesia by the anesthesiology department. After proper anesthesia had taken effect, the patient 's abdomen was prepped using Betadine and draped in a sterile fashion. An infraumbilical incision made, carried down through skin and subcutaneous tissue. A Veress needle was inserted through this site into the abdominal cavity and after ascertaining its appropriate position with suction irrigation, pneumoperitoneum obtained using CO2 insufflation to approximately 14-15 mmHg pressure. Once this pressure was reached, the Veress needle was removed and replaced with a 10 mm trocar. The trocar removed leaving the sleeve behind, through which a laparoscopic video camera was introduced into the abdominal cavity. Under direct visualization, a 5 mm trocar was placed in the left lower quadrant, a separate 10 mm trocar was placed in the left mid anterior abdomen. Each entered the abdominal cavity under direct visualization. Trocars were removed leaving the sleeves behind, through which laparoscopic instrumentation was introduced into the abdominal cavity. The tethered appendix and terminal ileum were freed using a combination of blunt dissection and the Thunderbeat. The terminal ileum was then freed from the retroperitoneal mesentery which appeared to have band-like adhesions. In the process of straightening out the terminal ileum, we came across 2 loops of terminal ileum that were not really kinked on themselves, but it could have been a possible site of partial bowel obstruction. These loops were straightened out by taking down the bands of the mesentery which held them together. The small bowel was then traced back to the ligament of Treitz, which appeared normal. Our attention was then turned to the appendix, which was freed from the surrounding mesentery and terminal ileum using blunt dissection and the Thunderbeat, the mesoappendix taken down using Thunderbeat. The base of the appendix was ligated in continuity using the Hem-o-Loks. The appendix was then divided between the Hem-o-Loks. The appendix was then retrieved from the abdominal cavity and sent to pathology. The appendiceal mucosal stump was cauterized using the Thunderbeat. The right lower quadrant and pelvis was irrigated copiously with warm normal saline and antibiotic solution and the irrigant suctioned out. Hemostasis assured. Once again, we turned our attention to the terminal ileum, which had been straightened out and did not appear to be kinked. The pneumoperitoneum was released and all trocars were removed from the abdominal cavity. All trocar sites approximated using 4-0 subdermal Polysorb and Steri-Strips. A sterile pressure occlusive dressing was placed over each site. The patient tolerated the procedure well, extubated and transferred to the recovery room in stable condition. There were no intraoperative or anesthetic complications.
[2016-12-04 16:15] VITALS: BP 170/95
[2016-12-04 16:24] VITALS: BP 170/95
[2016-12-04 16:29] VITALS: BP 151/82
[2016-12-04 16:41] VITALS: BP 149/86
[2016-12-04 17:01] VITALS: BP 166/90
== END 2016-12-04 17:20 | disposition home or self-care (01) ==
LOC: SDC SRH 11:54 → ACUTE2 SRH 16:19
PROVIDERS: Specialist
PROC: 0DNJ4ZZ Release Appendix, Percutaneous Endoscopic Approach (ICD-10-PCS; principal; 2016-12-04 14:00)
PROC: 0DN84ZZ Release Small Intestine, Percutaneous Endoscopic Approach (ICD-10-PCS; principal; 2016-12-04 14:00)
PROC: 0DTJ4ZZ Resection of Appendix, Percutaneous Endoscopic Approach (ICD-10-PCS; principal; 2016-12-04 14:00)
PROC: 0DNB4ZZ Release Ileum, Percutaneous Endoscopic Approach (ICD-10-PCS; principal; 2016-12-04 14:00)
DX: K56.5 Intestinal adhesions [bands] with obstruction (postinfection) (principal); Z80.0 Family history of malignant neoplasm of digestive organs

== ENCOUNTER 2016-12-09 10:36 | Outpatient (CLI) | payer OTHER ==
[~2016-12-09 10:36] MED LIST changes: +HYCET1 ML PO
== END 2016-12-09 23:00 ==
LOC: LAB SRH 10:36
DX: R10.9 Unspecified abdominal pain (principal)
CPT/HCPCS: 90074; 95059